=== PATIENT | female | born 1950 | race Caucasian/White ===

== ENCOUNTER 2016-08-05 02:57 | Inpatient (IN) | payer OTHER, MEDICARE ==
[~2016-08-05] VITALS: Ht 165.1 cm; Wt 98.9 kg
[~2016-08-05 02:57] MED LIST: DULERA 100 MCG/13 GM INH; HYDROCHLOROTHIA25 M1 PO; NORTRIPTYLINE H75 M2 PO; NORVASC2.5 M1 PO; PROTONIX40 M3 PO; SIMVASTATIN10 M1 PO; VENTOLIN HFA18 GM INH
[2016-08-05] MEDS ORDERED: CLARITIN10 M1 PO (08:07)
[2016-08-05] MEDS ORDERED: AMBIEN10 M1 PO (08:07)
--- NOTE | 2016-08-05 11:21 | Admission Core Measures ---
Admission Meds I reviewed the following Meds: Current Medications Sig/Shilpa Start time Last Medication Dose Stop Time Status Admin Acetaminophen 975 MG ONCE 08/05 0000 NR (Tylenol) 08/05 235 Albuterol Sulfate 2 PUF Q4-6 PRN PRN 08/05 1130 UNVr (Ventolin) Amlodipine Besylate 2.5 MG DAILY 08/06 1000 UNVr (Norvasc) Atorvastatin Calcium 5 MG 1700 08/05 170 UNVr (Lipitor) Cefazolin Sodium 2,000 MG ONCE 08/05 0000 NR (Kefzol-Ancef Inj) 08/05 235 Hydrochlorothiazide 25 MG DAILY 08/06 1000 UNVr (Hydrodiuril) Loratadine 10 MG DAILY 08/06 1000 UNVr (Claritin) Nortriptyline HCl 75 MG AT BEDTIME 08/05 2199 UNVr (Aventyl 50MG - Pamelor Cap) Oxycodone HCl 10 MG ONCE 08/05 0000 NR (Roxicodone) 08/05 2358 Pantoprazole Sodium 40 MG BID 08/05 2199 UNVr (Protonix) Ropivacaine 500 ML ONCE ONE 08/05 0915 AC (NAROPIN) 08/07 0254 ON-Q Ball 1 BAG Zolpidem Tartrate 10 MG QPM 08/05 220 UNVr (Ambien) Acute Coronary Syndrome Inclusion Criteria ACS Diagnosis No Inpatient Core Measures LDL Reminder: If No, please order W/I first 24hr of stay Congestive Heart Failure Inclusion Criteria CHF Diagnosis No Cerebrovascular accident Inclusion Criteria CVA/TIA Diagnosis No Inpatient Core Measures Bedside Swallow Eval Reminder: If BSE failed, place ST order Antithrombotic Reminder: Order Antithrombotic Medication by end of day 2 Antithrombotic Reminder: Document Reason Antithrombotic Not ordered by end of day 2 AFIB/Flutter Reminder: If Present, add to problem list AFIB/Flutter Reminder: Order Anticoag Medication for pts with AFIB/Flutter Atherosclerosis Reminder: If Present, add to problem list LDL Reminder: If No, please order W/I first 24hr of stay PT Order Reminder: If No, please order Venous thromboembolism Inpatient Core Measures VTE Risk Factors: Age > 40, Surgery No Mech VTE prophylaxis d/t No contraindications No VTE Pharm Prophylaxis d/t No contraindications Inclusion Criteria - Per Current guidelines, there needs to be overlap - treatment for the first 5 days of Warfarin therapy. - Parenteral Anticoagulation (IV or SC) needs to be - given along with Warfarin therapy. VTE Diagnosis No VTE Type NONE VTE Confirmed by (Test) NONE Problem List As ranked by this Provider includes Assessment & Plan 1. Status post total knee replacement, left HOME MEDS Home Med List Albuterol Sulfate (Ventolin Hfa) 90 MCG HFA.AER.AD 2 PUF INH Q4-6 PRN PRN ASTHMA (Reported) Amlodipine (Norvasc) 2.5 MG TABLET 1 TAB PO DAILY HTN (Reported) Hydrochlorothiazide 25 MG TABLET 1 TAB PO DAILY HTN (Reported) Loratadine (Claritin) 10 MG TABLET 10 MG PO DAILY ALLERGY (Reported) Mometasone/Formoterol (Dulera 100 Mcg/5 Mcg Inhaler) 100 MCG-5 MCG/ACTUATION HFA.AER.AD 2 PUF INH BID COPD (Reported) Nortriptyline HCl 75 MG CAPSULE 1 CAP PO QPM SLEEP (Reported) Pantoprazole Sodium (Protonix) 40 MG TABLET.DR 1 TAB PO BID GERD (Reported) Simvastatin (Simvastatin*) 10 MG TABLET 1 TAB PO QPM CHOLESTEROL (Reported) Zolpidem Tartrate (Ambien) 10 MG TABLET 1 TAB PO QPM SLEEP (Reported)
--- NOTE | 2016-08-05 11:23 | Discharge Summary ---
Visit Information Visit Dates Admission Date: 08/05/16 Discharge Date: 08/08/16 Hospital Course Course Attending Physician: ELO STINSON MD Primary Care Physician: BECKY KWON MD Hospital Course: Patient admitted to floor following procedure below. Patient ambulated with PT upon arrival to the floor. Patient continued to progress well. Upon discharge patient is afebrile, tolerating diet, pain controlled, ambulating well with rolling walker and PT. Complications: None Allergies: Coded Allergies: azithromycin (From ZITHROMAX) (Severe, HIVES 07/30/16) lisinopril (Severe, ANAPHYLAXIS 07/30/16) acetaminophen (From Percocet) (NAUSEA/VOMITING 08/04/16) PER PRE-OP ORDER SHEET. -CG 08/04/16 oxycodone (From Percocet) (NAUSEA/VOMITING 08/04/16) PER PRE-OP ORDER SHEET. -CG 08/04/16 potassium perchlorate (From PERCHLORACAP) (N & V 07/30/16) Significant Procedures: 08/05/16 left total knee arthroplasty Disposition Summary Disposition Principal Diagnosis: Left knee primary OA Additional Diagnosis: None Discharge Disposition: home health services Discharge Instructions General Discharge Information Code Status: Full Code Patient's Diet: Resume normal diet Patient's Activity: Weightbearing as tolerated Daily physical therapy Follow-Up Instructions/Appts: Call office to schedule follow-up appointment Follow-up with Dr. Stinson in 6 weeks. Call the office with any concerns of fever greater than 101.5. Large amounts of discharge or drainage from the wound or inability to bear weight on your operative side. The visiting nurse will remove your sutures/sean in approximately 2 weeks' time if applicable You may weight-bear as tolerated. Activity as tolerated. Range of motion as tolerated. Do not put pillows behind the knee, use a pillow under the heel to ensure your are in full knee extension. Keep the dressing dry as possible, you may shower with the dressing in place however, do not take a bath or submerge the wound in water as this will increase your chance of infection. Change the dressings after the shower. You may use dry gauze and tape or large Band-Aids Do not apply any ointments to the wound. Due to a risk of blood clots you'll need to be on aspirin 325 mg twice a day for the next 4 weeks. Take pain medication as directed. Apply ice as needed for 20 minutes every hour for the first few days. Please take Colace and/or MiraLAX [id number] to avoid constipation while you're on narcotic pain medication. Medications at Discharge Discharge Medications: Continue taking these medications: Hydrochlorothiazide (Hydrochlorothiazide) 25 MG TABLET 1 Tablet ORAL DAILY Simvastatin (Simvastatin*) 10 MG TABLET 1 Tablet ORAL Every night Pantoprazole Sodium (Protonix) 40 MG TABLET.DR 1 Tablet ORAL TWICE DAILY Amlodipine (Norvasc) 2.5 MG TABLET 1 Tablet ORAL DAILY Nortriptyline HCl (Nortriptyline HCl) 75 MG CAPSULE 1 Capsule ORAL Every night Mometasone/Formoterol (Dulera 100 Mcg/5 Mcg Inhaler) 100 MCG-5 MCG/ACTUATION HFA.AER.AD 2 Puff Inhale through mouth TWICE DAILY Albuterol Sulfate (Ventolin Hfa) 90 MCG HFA.AER.AD 2 Puff Inhale through mouth EVERY 4-6 HOURS NEEDED as needed for ASTHMA Loratadine (Claritin) 10 MG TABLET 10 Milligram ORAL DAILY Zolpidem Tartrate (Ambien) 10 MG TABLET 1 Tablet ORAL Every night Start taking the following new medications: Morphine Sulfate (Ms Contin) 100 MG TABLET.ER 15 Milligram ORAL TWICE DAILY Qty = 6 No Refills Hydromorphone HCl (Dilaudid) 4 MG TABLET 1-2 Tablet ORAL Q4-6P as needed for PAIN Qty = 36 No Refills Aspirin (Aspirin*) 325 MG TABLET 1 Tablet ORAL TWICE DAILY Qty = 60 No Refills Docusate Sodium (Colace) 100 MG CAPSULE 1 Capsule ORAL TWICE DAILY as needed for CONSTIPATION Qty = 30 No Refills Polyethylene Glycol 3350 (Miralax) 17 GRAM POWD.PACK 1 Packet ORAL DAILY as needed for CONSTIPATION Qty = 14 No Refills Instructions: dissolve in water Morphine Sulfate (Ms Contin) 15 MG TABLET.ER 1 Tablet ORAL TWICE DAILY Qty = 6 No Refills Copies To: BECKY KWON MD
--- NOTE | 2016-08-05 11:24 | Patient Discharge Instructions ---
Discharge Instructions General Discharge Information You were seen/treated for: LEFT KNEE OA/DJD You had these procedures: 08/03/18 left total knee arthroplasty Watch for these problems: Redness, swelling, fever, signs of infection. Uncontrolled pain, Excessive bleeding. Decreased range of motion or unable to bear weight. Chest pain, shortness of breath. Call Surgeon to remove: [place] (14 DAYS) Do not soak the wound: Yes No bath, but you may shower: Yes Other wound care: Daily dry dressing changes or as needed Special Instructions: Follow-up with Dr. Alston in 6 weeks. Call the office with any concerns of fever greater than 101.5. Large amounts of discharge or drainage from the wound or inability to bear weight on your operative side. The visiting nurse will remove your sutures/sean in approximately 2 weeks' time if applicable You may weight-bear as tolerated. Activity as tolerated. Range of motion as tolerated. Do not put pillows behind the knee, use a pillow under the heel to ensure your are in full knee extension. Keep the dressing dry as possible, you may shower with the dressing in place however, do not take a bath or submerge the wound in water as this will increase your chance of infection. Change the dressings after the shower. You may use dry gauze and tape or large Band-Aids Do not apply any ointments to the wound. Due to a risk of blood clots you'll need to be on aspirin 325 mg twice a day for the next 4 weeks. Take pain medication as directed. Apply ice as needed for 20 minutes every hour for the first few days. Please take Colace and/or MiraLAX [id number] to avoid constipation while you're on narcotic pain medication. Diet Continue normal diet: Yes Activity Activity Self Limited: Yes Activity Limited to: Weight bear as tolerated Additional ACTIVITY Info: Daily physical therapy Acute Coronary Syndrome Inclusion Criteria At DC or during hospital stay patient has or had the following: ACS DIAGNOSIS No Discharge Core Measures Meds if any: Prescribed or Continued at Discharge Meds if any: NOT Prescribed or Continued at Discharge Congestive Heart Failure Inclusion Criteria At DC or during hospital stay patient has or had the following: CHF DIAGNOSIS No Discharge Core Measures Meds if any: Prescribed or Continued at Discharge Meds if any: NOT Prescribed or Continued at Discharge Cerebrovascular accident Inclusion Criteria At DC or during hospital stay patient has or had the following: CVA/TIA Diagnosis No Discharge Core Measures Meds if any: Prescribed or Continued at Discharge Meds if any: NOT Prescribed or Continued at Discharge Venous thromboembolism Inclusion Criteria VTE Diagnosis No VTE Type NONE VTE Confirmed by (Test) NONE Discharge Core Measures - Per Current guidelines, there needs to be overlap - treatment for the first 5 days of Warfarin therapy. - If discharged on Warfarin prior to 5 days of - overlap therapy, the patient will need to be - assessed for post discharge needs including - *Post discharge parental anticoagulation - *Warfarin and/or parental anticoagulation education - *Follow up date to check INR post discharge At least 5 days overlap therapy as Inpatient No Meds if any: Prescribed or Continued at Discharge Note: Overlap Therapy is Warfarin and Anticoagulant Meds if any: NOT Prescribed or Continued at Discharge
[2016-08-05] MEDS ORDERED: MIRALAX17 G1 PO (11:26)
[2016-08-05] MEDS ORDERED: COLACE100 M1 PO (11:26)
[2016-08-05] MEDS ORDERED: ASPIRIN325 M2 PO (11:26)
[2016-08-05] MEDS ORDERED: DILAUDID4 M1 PO (11:26)
--- NOTE | 2016-08-05 15:10 | PN- Orthopedic ---
Subjective Subjective: No complaints. Denies pain at this time. Tolerating clears. No nausea. Denies dizziness. No shortness of breath. No chest pains. Due to void this evening. Not yet out of bed with PT, but expecting to get out of bed later. Objective Vital Signs and I&Os pacu flowsheet reviewed (vss) Physical Exam: General - alert & oriented x 3. comfortable. no acute distress. Lungs - clear bilaterally. no w/r/r. Cardiac - s1s2. reg. Abdomen - soft. nontender. Extremities - warm b/l. left leg dressing c/d/i. ice pack in place over left knee. nvi. on q in place. Assessment/Plan Assessment/Plan This 66 year old white female with hx asthma, htn is POD#0 s/p left total knee replacement advance diet as tolerated pain control as needed asa 325 mg bid cipriano-operative ancef x 2 doses awaiting PT eval on q in place due to void this evening home meds ordered f/u am labs will d/w Core Measures/Miscellaneous Venous Thromboembolism VTE Risk Factors: Age > 40, Surgery VTE Contraindications: No Contraindications VTE Diagnosis: No VTE Type: NONE VTE Confirmed by (Test): NONE Beta Chano Is Beta Chano a Home Med? No Antibiotics Is Patient on Antibiotics? Yes If Yes: prophylaxis
[2016-08-05 15:18] VITALS: BP 150/70
--- NOTE | 2016-08-05 17:30 | Operative Report ---
Operative/Inv Procedure Report Surgery Date: 08/05/16 Name of Procedure: Left total knee replacement Pre-Operative Diagnosis: Primary left knee DJD Post-Operative Diagnosis: Same Estimated Blood Loss: 50ml to 100ml Surgeon/Attending Radiologist: MILAD LAWS,ELO Pedersen Anesthesia: block Operative/Procedure Note Note: Description of Procedure: The patient was taken to the operating room and positively identified. After induction of spinal anesthesia and administration of appropriate pre-operative antibiotics, the patient was positioned supine on the operating room table and all bony prominences were well padded. A well-padded pneumatic tourniquet was placed on the left upper thigh. After performing a surgical timeout, the left lower extremity was prepped and draped in the usual sterile fashion. After exsanguination with Esmarch the tourniquet was inflated to 250mm of mercury. A standard medial parapatellar approach was made to the knee. This was carried down through skin and subcutaneous tissue to the level of the fascia. Meticulous hemostasis was maintained with Bovie electrocautery. The extensor mechanism and patellar retinaculum were opened sharply and the patella was everted. The infrapatellar fat was resected in order to improve exposure. Osteophytes were trimmed from the patella and femoral condyles and the patella was re-everted and tucked laterally. A medial release was performed and the cruciate ligaments were resected. The tibia was then subluxed anteriorly. Utilizing the appropriate extra-medullary guide, the proximal tibia was trimmed perpendicular to the long axis of the tibial shaft. Attention was then turned to the femur. After opening the medullary canal, the distal femoral cut was made in 6 degrees of valgus utilizing the appropriate intra-medullary guide. The extension gap was checked and found to be appropriate. The femur was then sized and the remainder of the femoral cuts were made with a size 3 4-in-1 femoral cutting guide. The flexion gap was checked and found to be symmetric and appropriate. The knee was then trialed with a size 3 femoral component, a size 3 tibial component and a size 13 mm polyethylene insert. The patella was trimmed to accept an A 32 patella. This yielded excellent range of motion, stability and patellar tracking. All trial components were removed and the knee was copiously irrigated with sterile saline. All components were cemented into place with [place] Simplex cement. All the components were of the [place] Triathlon knee system of the above stated sizes. The knee was again irrigated after cementation. The extensor mechanism and patellar retinaculum were repaired using interrupted #1 vicryl suture. The skin was re-approximated with 2-0 vicryl and closed with sean. A sterile dressing was applied, the tourniquet was deflated, the patient was awakened and taken to the recovery room in satisfactory condition.
[2016-08-05 19:45] VITALS: BP 152/70
[2016-08-06 00:40] VITALS: BP 146/70
[2016-08-06 03:53] VITALS: BP 148/70
[2016-08-06 07:50] VITALS: BP 130/70
[2016-08-06 08:51] LABS: ABSOLUTE BASOPHIL COUNT 0 /CUMM (0.0-0.2); ABSOLUTE EOSINOPHIL COUNT 0.1 /CUMM (0.0-0.7); ABSOLUTE GRANULOCYTE CT 3.9 /CUMM (1.4-6.5); ABSOLUTE LYMPH COUNT 0.4 /CUMM (1.2-3.4); ABSOLUTE MONOCYTE COUNT 0.5 /CUMM (0.10-0.60); BASOPHIL % 0.4 % (0.0-2.0); EOSINOPHIL % 1.8 % (0-5); GRANULOCYTE % 79.9 % (42.2-75.2); HEMATOCRIT 29.1 % (37-47); MEAN CORPUSCULAR HGB 26.6 PG (27.0-31.0); MEAN CORPUSCULAR HGB CONC 32.6 G/DL (33.0-37.0); MEAN CORPUSCULAR VOLUME 81.6 FL (81.0-99.0); MEAN PLATELET VOLUME 8.3 FL (7.4-10.4); PLATELET COUNT 181 /CUMM (130-400); RBC DISTRIBUTION WIDTH 16.8 % (11.5-14.5); RED BLOOD CELL CT 3.56 /CUMM (4.20-5.40); WHITE BLOOD CELL COUNT 4.8 /CUMM (4.8-10.8)
--- NOTE | 2016-08-06 08:57 | PN- Orthopedic ---
Subjective Subjective: The patient was seen this morning postoperatively day #1. She reports still having significant pain despite current pain regiment. She has worked well with physical therapy and is eager to possibly try to go home tomorrow. Objective Vital Signs and I&Os Vital Signs Date Time Temp Pulse Resp B/P Pulse O2 O2 Flow FiO2 Ox Delivery Rate 08/06 0750 98.3 87 18 130/70 95 08/06 0353 99.1 99 20 148/70 93 Room Air 08/06 0040 99.3 103 20 146/70 93 Room Air 08/05 1945 98.5 87 20 152/70 96 Room Air 08/05 1518 97.4 76 20 150/70 98 Intake & Output 08/06 1600 08/06 0800 08/06 0000 08/05 1600 08/05 0800 08/05 0000 Intake Total 850 600 Output Total 200 400 Balance 650 200 Intake, IV 600 300 Intake, Oral 250 300 Output, Urine 200 400 Patient 218 lb Weight Physical Exam: Gen.: Alert and in no obvious distress Skin: Warm and dry Extremities: Bilateral extremities are warm without calf tenderness or significant edema. Gross motor and sensory are intact. Left lower extremity surgical dressing clean, dry, and intact. There is an On-Q pain pump in place. Assessment/Plan Assessment/Plan Assessment: 66-year-old female status post left total knee arthroplasty postoperative day #1. The patient is progressing as expected however pain is not adequately controlled with the current pain regiment. Plan: Add MS Contin 15 mg by mouth twice a day scheduled to current pain regiment Continue to work with physical therapy Follow-up morning laboratory studies Hep-Lock IV fluids Aspirin 325mg po bid GI and DVT prophylaxis First surgical dressing change tomorrow Core Measures/Miscellaneous Venous Thromboembolism VTE Risk Factors: Age > 40, Surgery VTE Contraindications: No Contraindications VTE Diagnosis: No VTE Type: NONE VTE Confirmed by (Test): NONE Beta Chano Is Beta Chano a Home Med? No Antibiotics Is Patient on Antibiotics? No
[2016-08-06 10:30] VITALS: BP 140/70
[2016-08-06 15:54] VITALS: BP 120/70
[2016-08-06 23:04] VITALS: BP 160/86
--- NOTE | 2016-08-06 23:32 | NUR ---
BP ELEVATED AT 160/86. PT ASYMPTOMATIC. DR BRASHER AWARE. NO NEW ORDERS.
[2016-08-07 07:37] VITALS: BP 142/74
--- NOTE | 2016-08-07 08:45 | PN- Orthopedic ---
Subjective Subjective: 66-year-old female postop day 2 status post left total knee arthroplasty. States she ambulated a few feet yesterday with physical therapy but did not feel entirely comfortable. Still having pain in the left knee anterior aspect but is improved. She denies any fever or flulike illness chest pain shortness of breath. On Q was discontinued. She is having trouble lifting her leg up off the bed. Objective Vital Signs and I&Os Vital Signs Date Time Temp Pulse Resp B/P Pulse O2 O2 Flow FiO2 Ox Delivery Rate 08/07 0737 98.1 94 18 142/74 94 Room Air 08/06 2304 99.1 95 18 160/86 92 Room Air 08/06 1554 98.3 87 20 120/70 95 08/06 1030 83 140/70 08/06 0858 83 140/74 Intake & Output 08/07 1600 08/07 0800 08/07 0000 08/06 1600 08/06 0800 08/06 0000 Intake Total 306 883 2653 850 600 Output Total 350 700 200 400 Balance -200 -250 1320 650 200 Intake, IV 20 600 300 Intake, Oral 005 136 6822 250 300 Output, Urine 350 700 200 400 Patient 218 lb Weight Physical Exam: Well-developed well-nourished no apparent distress. HEENT: Atraumatic, extraocular motion intact Neck: Supple, no lymphadenopathy Respiratory: No respiratory distress Extremities: No edema LEFT lower extremity dressing in place, Incision line is clean dry and intact with minimal bloody drainage. No signs of infection. Mild joint effusion Range of motion is 0-60. Unable to straight leg raise off the bed Compression wrap in place. ALPS in place Neurovascularly intact distally Bilateral calves are supple, nontender. Neuro: Alert and oriented x3 Psych: Mood affect normal, normal memory normal judgment. Skin: Warm and dry, no rash on exposed skin Results Last 48 Hours of Labs: Laboratory Tests 08/07 08/06 0710 0615 Chemistry Sodium (137 - 145 mmol/L) Pending 131 L Potassium (3.5 - 5.1 mmol/L) Pending 3.4 L Chloride (98 - 107 mmol/L) Pending 97 L Carbon Dioxide (22 - 30 mmol/L) Pending 27 Anion Gap (5 - 16) Pending 6 BUN (7 - 17 mg/dL) Pending 12 Creatinine (0.5 - 1.0 mg/dL) Pending 0.9 Estimated GFR (>60 ml/min) > 60 BUN/Creatinine Ratio (7 - 25 %) Pending 13.3 Hematology CBC w Diff NO MAN DIFF REQ WBC (4.8 - 10.8 /CUMM) 4.8 RBC (4.20 - 5.40 /CUMM) 3.56 L Hgb (12.0 - 16.0 G/DL) 9.5 L Hct (37 - 47 %) 29.1 L MCV (81.0 - 99.0 FL) 81.6 MCH (27.0 - 31.0 PG) 26.6 L RDW (11.5 - 14.5 %) 16.8 H Plt Count (130 - 400 /CUMM) 181 MPV (7.4 - 10.4 FL) 8.3 Gran % (42.2 - 75.2 %) 79.9 H Lymphocytes % (20.5 - 51.1 %) 8.0 L Monocytes % (1.7 - 9.3 %) 9.9 H Eosinophils % (0 - 5 %) 1.8 Basophils % (0.0 - 2.0 %) 0.4 Absolute Granulocytes (1.4 - 6.5 /CUMM) 3.9 Absolute Lymphocytes (1.2 - 3.4 /CUMM) 0.4 L Absolute Monocytes (0.10 - 0.60 /CUMM) 0.5 Absolute Eosinophils (0.0 - 0.7 /CUMM) 0.1 Absolute Basophils (0.0 - 0.2 /CUMM) 0 PUBS MCHC (33.0 - 37.0 G/DL) 32.6 L Assessment/Plan Assessment/Plan 66-year-old female postop day 2 status post left total knee arthroplasty -Orthopedically stable, continue physical therapy, weightbearing as tolerated, work on ambulation and range of motion. -Plan for discharge home tomorrow with VNA services -Continue aspirin 325 mg by mouth twice a day for DVT prophylaxis -Adding MS Contin for pain control has improved her pain regiment, will continue as outpatient. -Dressing changed today, compression wraps applied, no signs of infection Hyponatremia-asymptomatic, follow labs this morning Mild acute blood loss anemia-stable, asymptomatic Core Measures/Miscellaneous Venous Thromboembolism VTE Risk Factors: Age > 40, Surgery VTE Contraindications: No Contraindications VTE Diagnosis: No VTE Type: NONE VTE Confirmed by (Test): NONE Beta Chano Is Beta Chano a Home Med? No Antibiotics Is Patient on Antibiotics? No
[2016-08-07] MEDS ORDERED: MS CONTIN15 M2 PO (08:47)
[2016-08-07] MEDS ORDERED: MS CONTIN100 MG PO (10:30)
[2016-08-07 14:31] VITALS: BP 130/90
[2016-08-07 23:17] VITALS: BP 134/74
[2016-08-08 07:23] VITALS: BP 132/70
[2016-08-08] MEDS ORDERED: DILAUDID2 M1 PO (09:29)
[2016-08-08 09:30] VITALS: BP 120/58
--- NOTE | 2016-08-08 09:37 | PN- Orthopedic ---
Subjective Subjective: No acute overnight events reported. Pain well controlled. Denies nausea and vomitting. Denies chest pain, shortness of breath and difficulty breathing. Objective Vital Signs and I&Os Vital Signs Date Time Temp Pulse Resp B/P Pulse O2 O2 Flow FiO2 Ox Delivery Rate 08/08 0723 97.8 87 20 132/70 92 Room Air 08/07 2317 99.2 84 20 134/74 94 Room Air 08/07 1431 97.6 86 20 130/90 95 Room Air 08/07 1008 142/74 Intake & Output 08/08 1600 08/08 0800 08/08 0000 08/07 1600 08/07 0800 08/07 0000 Intake Total 0 450 680 150 450 Output Total 475 350 700 Balance 0 450 205 -200 -250 Intake, IV 0 0 Intake, Oral 0 450 680 150 450 Number 0 0 Bowel Movements Output, Urine 475 350 700 Physical Exam: General: Alert and oriented x3, no acute distress Cardiac: RRR, s1s2 Pulm: C TA bialterally Abdomen: Non-tender, non-distended Extremities: Moves all extremities, distal sensation intact. Motor intact. SKin well perfused. Bilateral calves soft and non-tender. Assessment/Plan Assessment/Plan This is a 66 year old female, POD 3, s/p left tkr, doing well -DVT PPX, continue asa 325 bid -Plan for discharge to home today -Colace and miralax for bowel regimen -Dilaudid 2-4 for pain Core Measures/Miscellaneous Venous Thromboembolism VTE Risk Factors: Age > 40, Surgery VTE Contraindications: No Contraindications VTE Diagnosis: No VTE Type: NONE VTE Confirmed by (Test): NONE Beta Chano Is Beta Chano a Home Med? No Antibiotics Is Patient on Antibiotics? No
== END 2016-08-08 12:00 | disposition home health service (06) | DRG 470 ==
LOC: ENRESERVDT → ENRESERVTM → SDA 02:57 → 2NA 02:57 → EDBD 07:00 → 2NA 14:27
PROVIDERS: Physician Assistant Surgical; ADMIT Orthopaedic Surgery
PROC: 0SRD0J9 Replacement of Left Knee Joint with Synthetic Substitute, Cemented, Open Approach (ICD-10-PCS; principal; 2016-08-05)
DX: M17.12 Unilateral primary osteoarthritis, left knee (principal); C85.90 Non-Hodgkin lymphoma, unspecified, unspecified site; J45.909 Unspecified asthma, uncomplicated; I10 Essential (primary) hypertension; E78.01 Familial hypercholesterolemia; E11.9 Type 2 diabetes mellitus without complications; Z87.891 Personal history of nicotine dependence
CPT/HCPCS: 2NASP; 36415; 82436; 88305; 97110-GO; 97116-GO; 97161-GP; 97530-GO; C1713; J0690; J2405; J2795; J3490; J7042